=== PATIENT | female | born 1955 | race Caucasian/White ===

== ENCOUNTER 2017-01-21 18:11 | Emergency (ER) | payer OTHER ==
[~2017-01-21] VITALS: Ht 160 cm; Wt 53.2 kg
[~2017-01-21 18:11] MED LIST: DONE10TA PO; FLUO-191 PO
[2017-01-21] MEDS ORDERED: TRAZ-144 PO (18:19)
[2017-01-21] MEDS ORDERED: ACETAMINOPHEN 325 MG TABLET PO ONE (19:30)
[2017-01-21 19:43] VITALS: BP 100/62
== END 2017-01-21 19:57 | disposition home or self-care (01) ==
LOC: EMS 18:14
DX: R07.2 Precordial pain (principal); J06.9 Acute upper respiratory infection, unspecified; J40 Bronchitis, not specified as acute or chronic; F17.210 Nicotine dependence, cigarettes, uncomplicated
CPT/HCPCS: 71020; 93005; 99284

== ENCOUNTER 2021-06-23 07:42 | Emergency (ER) | payer MEDICAID, OTHER ==
[~2021-06-23] VITALS: Ht 160 cm; Wt 61.4 kg
[~2021-06-23 07:42] MED LIST changes: -DONE10TA PO; +TRAZ-252 PO
[2021-06-23] MEDS ORDERED: ValACYclovir HCL 500 MG TABLET PO ONE (08:15)
[2021-06-23] MEDS ORDERED: KETOROLAC TROMETHAMINE 30 MG/ML VIAL IVP ONE (08:15)
[2021-06-23] MEDS ORDERED: HYDROCODONE/ACETAMINOPHEN 5-325 MG TABLET PO ONE (08:15)
[2021-06-23 08:24] LABS: BASOPHILS % (AUTO) 0.7 % (0.0-2.0); HEMATOCRIT 42.5 % (36-46); HEMOGLOBIN 14.3 g/dL (12.0-16.0); LYMPHOCYTES # (AUTO) 2.7 K/uL (1.0-4.8); LYMPHOCYTES % (AUTO) 27.6 % (22.0-44.0); MEAN CORPUSCULAR HEMOGLOBIN 31.9 pg (26.0-34.0); MEAN CORPUSCULAR HGB CONC 33.5 G/dL (31.0-37.0); MEAN CORPUSCULAR VOLUME 95 fL (80-100); MONOCYTES # (AUTO) 0.4 K/uL (0.1-1.0); MONOCYTES % (AUTO) 4.4 % (2.0-9.0); NEUTROPHILS # (AUTO) 4.9 K/uL (1.8-7.7); NEUTROPHILS % (AUTO) 50.8 % (40.0-70.0); PLATELET COUNT (AUTO) 195 K/uL (150-450); RED BLOOD CELL COUNT(AUTO) 4.46 MIL/uL (4.00-5.20); RED CELL DISTRIBUTION WIDTH 14.3 % (11.5-14.5)
[2021-06-23 08:26] LABS: EOSINOPHILS % (AUTO) 16.5 % (1.0-6.0)
[2021-06-23 08:36] LABS: ANION GAP 9 mmol/L (8-16); CARBON DIOXIDE 26 mmol/L (22-29); CHLORIDE 107 mmol/L (98-107); CREATININE 0.61 mg/dL (0.60-1.30); GLOMERULAR FILTR. RATE CALC > 60 mL/min (>60); GLUCOSE,RANDOM 93 mg/dL (70-110); POTASSIUM 4.6 mmol/L (3.5-5.1); SODIUM SERUM 142 mmol/L (136-145); UREA NITROGEN, BLOOD 9 mg/dL (7-18)
[2021-06-23 08:41] LABS: ALANINE AMINOTRANSFERASE 15 U/L (12-78); ALBUMIN 3.8 g/dL (3.4-5.0); ALKALINE PHOSPHATASE 79 U/L (46-116); ASPARTATE AMINOTRANSFERASE 23 U/L (15-37); BILIRUBIN,TOTAL 0.3 mg/dL (0.1-1.0); LIPASE 65 U/L (73-393); TOTAL PROTEIN, SERUM 7.7 g/dL (6.4-8.2)
[2021-06-23 11:23] VITALS: BP 110/70
== END 2021-06-23 11:29 | disposition home or self-care (01) ==
LOC: EMS 07:48
DX: B02.9 Zoster without complications (principal); M17.0 Bilateral primary osteoarthritis of knee; F32.9 Major depressive disorder, single episode, unspecified; F17.210 Nicotine dependence, cigarettes, uncomplicated; Z79.899 Other long term (current) drug therapy
CPT/HCPCS: 36415; 74176; 80053; 83690; 84484; 85025; 93005; 96374; 99285; J1885